=== PATIENT | female | born 1955 | race Caucasian/White ===

== ENCOUNTER → 2017-05-31 | Outpatient (CLI) | payer BC ==
[~2017-05-31] MED LIST: CALCIUM + D 6001 TAB PO; EC NAPROSYN500 MG; EC NAPROSYN500 MG PO; METOCLOPRAMIDE10 MG; NEXIUM40 MG; NORCO 325 MG-51 TAB PO; PREMARIN0.625 MG; PROPRANOLOL ER80 MG; TRILIPIX45 M1; TRILIPIX45 M1 PO; ZESTRIL40 MG; ZOCOR40 MG
== END | disposition home or self-care (01) ==
LOC: MAMMO 01:37
DX: Z12.31 Encounter for screening mammogram for malignant neoplasm of breast (principal)

== ENCOUNTER 2017-07-15 08:34 | Emergency (ER) | payer BC ==
[~2017-07-15] VITALS: Ht 162.5 cm; Wt 87.1 kg
[2017-07-15 08:45] VITALS: BP 139/78
[2017-07-15] MEDS ORDERED: TOBRADEX 0.1%-0.5 ML OPH (09:17)
== END 2017-07-15 09:32 | disposition home or self-care (01) ==
LOC: ED 08:34
DX: H10.9 Unspecified conjunctivitis (principal); J44.9 Chronic obstructive pulmonary disease, unspecified; Z88.8 Allergy status to other drugs, medicaments and biological substances; Z79.899 Other long term (current) drug therapy